=== PATIENT | female | born 1985 | race African-American/Black ===

== ENCOUNTER 2019-04-23 11:49 | Emergency (ER) | payer OTHER ==
--- OUTSIDE RECORDS SUMMARY | 2019-04-23 11:51 | XMS REPORT ---
:1985 [facility] Organization [facility] Address [address] [place] [address] Dr. Mendez [address] [place] [id number] Care Team Providers Name Role Phone Unavailable Unavailable Unavailable Problems This patient has no known problems. Allergies, Adverse Reactions, Alerts This patient has no known allergies or adverse reactions. Medications This patient has no known medications.
--- NOTE | 2019-04-23 12:30 | RAD REPORT ---
EXAM DESCRIPTION: RAD - Chest Pa And Lat (2 Views) - 04/23/2019 12:22 pm CLINICAL HISTORY: Cough;Congestion Chest pain. COMPARISON: CHEST PA AND LAT 2 VIEW dated 06/12/2012; CHEST PA AND LAT 2 VIEW dated 06/08/2012; CHEST PA AND LAT 2 VIEW dated 03/23/2012; CHEST SINGLE VIEW dated 11/13/2009 FINDINGS: The lungs are clear. The heart is normal in size. No displaced fractures. IMPRESSION: No acute or concerning finding suspected.
[2019-04-23] MEDS ORDERED: IPRATROPIUM BROM 0.5MG/2.5ML ONE (12:38)
[2019-04-23] MEDS ORDERED: METHYLPREDNISOLONE 125 MG INJ ONE (12:38)
[2019-04-23] MEDS ORDERED: LEVALBUTEROL 1.25 MG/3 ML NEB ONE (12:38)
[2019-04-23] MEDS ORDERED: CEFTRIAXONE/SWI 1gm 2 GM/20 ML SYR ONE (12:38)
[2019-04-23] MEDS ORDERED: AZITHROMYCIN IV 500 MG in NA CHLORIDE 0.9% 250 ML IVPB ONE (13:00)
[2019-04-23 13:18] LABS: Absolute Lymphocytes (CBC) 0.7 K/uL (0.7-4.9); Basophils % 0.4 % (0-1.3); Hematocrit 37.2 % (36.0-45.0); MPV 11.3 fL (7.6-11.3); RBC Red Blood Cell Count 4.48 M/uL (3.86-4.86)
[2019-04-23 13:30] LABS: ALT/SGPT 22 U/L (12-78); AST/SGOT 31 U/L (15-37); Albumin 3.9 g/dL (3.4-5.0); Alkaline Phosphatase 61 U/L (45-117); BUN Blood Urea Nitrogen 16 mg/dL (7-18); Bicarbonate 24 mmol/L (21-32); Bilirubin Total 0.7 mg/dL (0.2-1.0); Glucose Level 88 mg/dL (74-106); Potassium 3.7 mmol/L (3.5-5.1); Protein, Total 8.1 g/dL (6.4-8.2); Sodium Level 138 mmol/L (136-145)
[2019-04-23] MEDS ORDERED: ONDANSETRON 4 MG/2 ML VIAL ONE (13:42)
[2019-04-23] MEDS ORDERED: MORPHINE 2 MG/ML SYR ONE (13:42)
[2019-04-23 13:46] LABS: Blood Morphology Comment NOT SEEN (NOT SEEN); Platelet Estimate DECR; Platelets, Giant FEW; Urine White Blood Cell Casts OK
--- NOTE | 2019-04-23 14:15 | ER ---
Nurse's Notes [facility] Name: Noami Curtis Age: 33 yrs Sex: Female : 1985 Arrival Date: 04/23/2019 Time: 11:51 Bed 25 Private MD: Diagnosis: Streptococcal tonsillitis;Bronchitis, not specified as acute or chronic;Cough;Multiple sclerosis Presentation: 04/22 12:03 Chief complaint: Patient states: Fever, vomiting, cough, and congestion for the past aj1 week. TMax 103. Patient also reports a "lump" on the left side of her neck and painful swallowing. Coronavirus screen: The patient has NOT traveled to [place] in the past 14 days. Ebola Screen: Patient denies travel to an Ebola-affected area in the 21 days before illness onset. Initial Sepsis Screen: Does the patient meet any 2 criteria? RR > 20 per min. No. Patient's initial sepsis screen is negative. Does the patient have a suspected source of infection? Yes: Productive cough/pneumonia. Risk Assessment: Do you want to hurt yourself or someone else? Patient reports no desire to harm self or others. 12:03 Method Of Arrival: Ambulatory aj1 12:08 Acuity: BETY 3 aj1 Triage Assessment: 12:05 General: Appears in no apparent distress. uncomfortable, Behavior is calm, cooperative, aj1 appropriate for age. Pain: Complains of pain in neck. 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 - Social history:: Smoking status: Patient denies any tobacco usage or history of. - Family history:: not pertinent. Screenin:09 Abuse screen: Denies threats or abuse. Denies injuries from another. Nutritional aj1 screening: No deficits noted. Tuberculosis screening: No symptoms or risk factors identified. 14:42 Fall Risk None identified. aj1 Assessment: 12:09 General: Appears in no apparent distress. uncomfortable, Behavior is calm, cooperative, aj1 appropriate for age. Pain: Complains of pain in neck. Neuro: Level of Consciousness is awake, alert, obeys commands, Oriented to person, place, time, situation. Cardiovascular: Heart tones S1 S2 present Patient's skin is warm and dry. Respiratory: Reports cough that is hacking, persistent Airway is patent Respiratory effort is even, unlabored, Respiratory pattern is regular, symmetrical, Breath sounds are coarse bilaterally. GI: No signs and/or symptoms were reported involving the gastrointestinal system. : No signs and/or symptoms were reported regarding the genitourinary system. EENT: Reports difficulty swallowing sore throat, neck pain. Derm: No signs and/or symptoms reported regarding the dermatologic system. Skin is pink, warm \\T\\ dry. normal. Musculoskeletal: No signs and/or symptoms reported regarding the musculoskeletal system. Circulation, motion, and sensation intact. 12:12 Reassessment: Patient transported to radiology for chest X-Ray. aj1 13:24 Reassessment: Patient appears in no apparent distress at this time. No changes from aj1 previously documented assessment. Patient and/or family updated on plan of care and expected duration. Pain level reassessed. Patient is alert, oriented x 3, equal unlabored respirations, skin warm/dry/pink. 14:41 Reassessment: Patient appears in no apparent distress at this time. No changes from aj1 previously documented assessment. Patient and/or family updated on plan of care and expected duration. Pain level reassessed. Patient is alert, oriented x 3, equal unlabored respirations, skin warm/dry/pink. Vital Signs: 12:03 BP 139 / 98; Pulse 88; Resp 24; Temp 98.4(O); Pulse Ox 100% on R/A; Weight 47.63 kg aj1 (R); Height 5 ft. 9 in. (175.26 cm) (R); Pain 8/10; 13:25 BP 133 / 88; Pulse 70; Resp 20; Temp 98.6; Pulse Ox 100% on R/A; aj1 14:41 BP 130 / 87; Pulse 82; Resp 18; Pulse Ox 100% on R/A; aj1 12:03 Body Mass Index 15.51 (47.63 kg, 175.26 cm) aj ED Course: 11:51 Patient arrived in ED. as 11:56 Josh Agarwal MD is Attending Physician. nestor 11:57 Sebastián, Naomi, RN is Primary Nurse. aj1 12:05 Arm band placed on. aj1 12:08 Triage completed. aj1 12:09 Patient has correct armband on for positive identification. Bed in low position. Call aj1 light in reach. Side rails up X 1. 12:09 No provider procedures requiring assistance completed. aj1 12:23 Chest Pa And Lat (2 Views) XRAY In Process Unspecified. EDMS 12:40 First set of blood cultures drawn by ED staff. aj1 12:54 Second set of blood cultures drawn by ED staff. Initial lab(s) drawn, by ED staff, sent aj1 to lab. Inserted saline lock: 22 gauge in left wrist, using aseptic technique. 12:56 Flu and/or RSV swab sent to lab. aj1 14:42 IV discontinued, intact, bleeding controlled, No redness/swelling at site. Pressure aj1 dressing applied. Administered Medications: 13:13 Drug: SOLU-Medrol 2 mg/kg Route: IVP; Site: left wrist; aj1 13:45 Follow up: Response: No adverse reaction aj1 13:14 Drug: Rocephin 2 grams Route: IV; Rate: per protocol; Site: left wrist; aj1 13:20 Follow up: IV Status: Completed infusion; IV Intake: 20ml aj1 13:14 Drug: Zithromax 500 mg Route: IVPB; Infused Over: 1 hrs; Site: left wrist; aj1 14:15 Follow up: IV Status: Completed infusion; IV Intake: 250ml aj1 13:14 Drug: Xopenex 3.75 mg Route: Inhalation; aj1 13:45 Follow up: Response: No adverse reaction aj1 13:14 Drug: AtroVENT Aerosol 0.5 mg Route: Inhalation; aj1 13:45 Follow up: Response: No adverse reaction aj1 13:44 Drug: morphine 2 mg Route: IVP; Site: left wrist; aj1 14:15 Follow up: Response: No adverse reaction; Pain is decreased; RASS: Alert and Calm (0) aj1 13:44 Drug: Zofran (Ondansetron) 4 mg Route: IVP; Site: left wrist; aj1 14:15 Follow up: Response: No adverse reaction aj1 14:40 Drug: Augmentin 875 mg Route: PO; aj1 14:45 Follow up: Response: No adverse reaction aj1 Intake: 13:20 IV: 20ml; Total: 20ml. aj1 14:15 IV: 250ml; Total: 270ml. aj1 Outcome: 14:14 Discharge ordered by . nestor 14:42 Discharged to home ambulatory. aj1 14:42 Condition: good 14:42 Discharge instructions given to patient, Instructed on discharge instructions, follow up and referral plans. medication usage, Demonstrated understanding of instructions, follow-up care, medications, Prescriptions given X 1. 14:43 Patient left the ED. aj1 Signatures: Dispatcher [employer] Naomi Gonzalez RN RN aj1 Josh Agarwal MD MD cha Martinez, Amelia as
--- NOTE | 2019-04-23 14:15 | EDPHYS ---
Physician Documentation [facility] Name: Naomi Curtis Age: 33 yrs Sex: Female : 1985 Arrival Date: 04/23/2019 Time: 11:51 Bed 25 Private MD: ED Physician Josh Agarwal HPI: 04/22 12:24 This 33 yrs old Black Female presents to ER via Ambulatory with complaints of Flu nestor Symptoms. 12:24 The patient has shortness of breath at rest, with light activity. Onset: The nestor symptoms/episode began/occurred 4 day(s) ago. Duration: The symptoms are continuous, and are steadily getting worse. The patient's shortness of breath is aggravated by coughing, exertion, light activity, is alleviated by nebulizer treatment, rest, application of supplemental oxygen. The patient presents to the emergency department with wheezing, the patient was reported to have audible wheezing. The patient or guardian reports airway noise, difficulty breathing. Modifying factors: The symptoms are alleviated by nothing. the symptoms are aggravated by activity, lying flat, talking. 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 - Social history:: Smoking status: Patient denies any tobacco usage or history of. - Family history:: not pertinent. ROS: 12:24 Constitutional: Negative for fever, chills, and weight loss, Eyes: Negative for injury, nestor pain, redness, and discharge, ENT: Negative for injury, pain, and discharge, Neck: Negative for injury, pain, and swelling, Cardiovascular: Negative for chest pain, palpitations, and edema, Abdomen/GI: Negative for abdominal pain, nausea, vomiting, diarrhea, and constipation, Back: Negative for injury and pain, : Negative for injury, bleeding, discharge, and swelling, MS/Extremity: Negative for injury and deformity, Skin: Negative for injury, rash, and discoloration, Neuro: Negative for headache, weakness, numbness, tingling, and seizure, Psych: Negative for depression, anxiety, suicide ideation, homicidal ideation, and hallucinations, Allergy/Immunology: Negative for hives, rash, and allergies, Endocrine: Negative for neck swelling, polydipsia, polyuria, polyphagia, and marked weight changes, Hematologic/Lymphatic: Negative for swollen nodes, abnormal bleeding, and unusual bruising. 12:24 Respiratory: Positive for cough, wheezing, inspiratory, expiratory. Exam: 12:24 Constitutional: This is a well developed, well nourished patient who is awake, alert, nestor and in no acute distress. Head/Face: Normocephalic, atraumatic. Eyes: Pupils equal round and reactive to light, extra-ocular motions intact. Lids and lashes normal. Conjunctiva and sclera are non-icteric and not injected. Cornea within normal limits. Periorbital areas with no swelling, redness, or edema. ENT: Nares patent. No nasal discharge, no septal abnormalities noted. Tympanic membranes are normal and external auditory canals are clear. Oropharynx with no redness, swelling, or masses, exudates, or evidence of obstruction, uvula midline. Mucous membranes moist. Neck: Trachea midline, no thyromegaly or masses palpated, and no cervical lymphadenopathy. Supple, full range of motion without nuchal rigidity, or vertebral point tenderness. No Meningismus. Chest/axilla: Normal chest wall appearance and motion. Nontender with no deformity. No lesions are appreciated. Cardiovascular: Regular rate and rhythm with a normal S1 and S2. No gallops, murmurs, or rubs. Normal PMI, no JVD. No pulse deficits. Abdomen/GI: Soft, non-tender, with normal bowel sounds. No distension or tympany. No guarding or rebound. No evidence of tenderness throughout. Back: No spinal tenderness. No costovertebral tenderness. Full range of motion. Female : Normal external genitalia. Skin: Warm, dry with normal turgor. Normal color with no rashes, no lesions, and no evidence of cellulitis. MS/ Extremity: Pulses equal, no cyanosis. Neurovascular intact. Full, normal range of motion. Neuro: Awake and alert, GCS 15, oriented to person, place, time, and situation. Cranial nerves II-XII grossly intact. Motor strength 5/5 in all extremities. Sensory grossly intact. Cerebellar exam normal. Normal gait. Psych: Awake, alert, with orientation to person, place and time. Behavior, mood, and affect are within normal limits. 12:24 Respiratory: mild respiratory distress is noted, Respirations: prolonged exhalation, Breath sounds: bronchial sounds, decreased breath sounds, rhonchi, wheezing: expiratory Respiratory rate: 24 13:19 Musculoskeletal/extremity: Exam is negative for acute changes, Extremities: all appear nestor grossly normal, with no appreciated pain with palpation, DVT Exam: No signs of deep vein thrombosis. no pain, no swelling, no tenderness, negative Homans' sign noted on exam, no appreciated bluish discoloration, no erythema, no increased warmth. Vital Signs: 12:03 BP 139 / 98; Pulse 88; Resp 24; Temp 98.4(O); Pulse Ox 100% on R/A; Weight 47.63 kg [facility] (R); Height 5 ft. 9 in. (175.26 cm) (R); Pain 8/10; 13:25 BP 133 / 88; Pulse 70; Resp 20; Temp 98.6; Pulse Ox 100% on R/A; aj1 14:41 BP 130 / 87; Pulse 82; Resp 18; Pulse Ox 100% on R/A; aj1 12:03 Body Mass Index 15.51 (47.63 kg, 175.26 cm) [facility] MDM: 11:56 Patient medically screened. [facility] 11:58 Patient medically screened. [facility] 12:29 Data reviewed: vital signs, nurses notes, lab test result(s), EKG, radiologic studies, nestor CT scan, plain films. 04/22 12:06 Order name: CBC with Diff; Complete Time: 14:05 [facility] 04/22 12:06 Order name: Comprehensive Metabolic Panel; Complete Time: 14:05 [facility] 04/22 12:06 Order name: Blood Culture Adult (2) [facility] 04/22 12:06 Order name: Lactate; Complete Time: 14:05 [facility] 04/22 12:06 Order name: Procalcitonin; Complete Time: 14:05 [facility] 04/22 12:06 Order name: Influenza Screen (a \T\ B); Complete Time: 14:05 [facility] 04/22 12:06 Order name: Chest Pa And Lat (2 Views) XRAY; Complete Time: 12:57 [facility] 04/22 12:44 Order name: Strep; Complete Time: 14:05 [facility] 04/22 13:47 Order name: CBC Smear Scan; Complete Time: 14:05 EDMS Administered Medications: 13:13 Drug: SOLU-Medrol 2 mg/kg Route: IVP; Site: left wrist; aj1 13:45 Follow up: Response: No adverse reaction aj1 13:14 Drug: Rocephin 2 grams Route: IV; Rate: per protocol; Site: left wrist; aj1 13:20 Follow up: IV Status: Completed infusion; IV Intake: 20ml aj1 13:14 Drug: Zithromax 500 mg Route: IVPB; Infused Over: 1 hrs; Site: left wrist; aj1 14:15 Follow up: IV Status: Completed infusion; IV Intake: 250ml aj1 13:14 Drug: Xopenex 3.75 mg Route: Inhalation; aj1 13:45 Follow up: Response: No adverse reaction aj1 13:14 Drug: AtroVENT Aerosol 0.5 mg Route: Inhalation; aj1 13:45 Follow up: Response: No adverse reaction aj1 13:44 Drug: morphine 2 mg Route: IVP; Site: left wrist; aj1 14:15 Follow up: Response: No adverse reaction; Pain is decreased; RASS: Alert and Calm (0) aj1 13:44 Drug: Zofran (Ondansetron) 4 mg Route: IVP; Site: left wrist; aj1 14:15 Follow up: Response: No adverse reaction aj1 14:40 Drug: Augmentin 875 mg Route: PO; aj1 14:45 Follow up: Response: No adverse reaction aj Disposition: 04/23/19 14:14 Discharged to Home. Impression: Streptococcal tonsillitis, Bronchitis, not specified as acute or chronic, Cough, Multiple sclerosis. - Condition is Stable. - Discharge Instructions: Acute Bronchitis, Adult, Upper Respiratory Infection, Adult, Cool Mist Vaporizer, Acute Bronchitis, Akew-on-Rbel, Cough, Adult, [id number], Cough, Adult. - Prescriptions for Augmentin 875- 125 mg Oral Tablet - take 1 tablet by ORAL route every 12 hours for 10 days; 20 tablet. Medrol (Jim) 4 mg Oral Tablets, Dose Pack - take 1 tablet by ORAL route as directed - follow package instructions; 1 packet. Albuterol Sulfate 90 mcg/actuation - inhale 1-2 puff by INHALATION route every 4-6 hours; 1 Inhaler. - Work release form, Medication Reconciliation Form, Thank You Letter, Antibiotic Education, Prescription Opioid Use form. - Follow up: Private Physician; When: 2 - 3 days; Reason: Recheck today's complaints, Continuance of care, Re-evaluation by your physician. - Problem is new. - Symptoms have improved. Signatures: Dispatcher [employer] Naomi Gonzalez RN RN aj1 Josh Agarwal MD MD cha Corrections: (The following items were deleted from the chart) 14:43 14:14 04/23/2019 14:14 Discharged to Home. Impression: Streptococcal tonsillitis; aj1 Bronchitis, not specified as acute or chronic; Cough; Multiple sclerosis. Condition is Stable. Forms are Medication Reconciliation Form, Thank You Letter, Antibiotic Education, Prescription Opioid Use. Follow up: Private Physician; When: 2 - 3 days; Reason: Recheck today's complaints, Continuance of care, Re-evaluation by your physician. Problem is new. Symptoms have improved. nestor
[2019-04-23] MEDS ORDERED: AMOX/K CLAV 875 MG TAB ONE (14:34)
[2019-04-23 14:54] VITALS: TEMP 98.6; O2SAT 100
[2019-04-23 14:56] VITALS: BP 130/87
== END 2019-04-23 14:43 | disposition home or self-care (01) ==
LOC: ER 11:49
DX: J40 Bronchitis, not specified as acute or chronic (principal); J03.00 Acute streptococcal tonsillitis, unspecified; G35 Multiple sclerosis
CPT/HCPCS: 96365; 87040 ×2; 85025; 36415; 87081; 83605; 80053; 84145; 87804 ×2; 71046; 96375; 99285; J0456; J2270; J0696; J7030; J2930; J2405

== ENCOUNTER 2024-01-31 12:14 | Emergency (ER) | payer MEDICARE ==
--- OUTSIDE RECORDS SUMMARY | 2024-01-31 12:23 | XMS REPORT | Continuity of Care Document ---
Author Name Unknown Address [address] [facility] [address] [place] [address] [facility] thcredwood llcect Address [address] 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 Name Role Phone PCP, PATIENT DOES NOT HAVE A Primary Care Physic kunal Unavailable [email or web address]_Petra_S Attending Clinician Unavaila LARISA Stern Attending Clinician Un available Larisa Nichols MD Attending Clinician Vjiay Yanez MD Attending Clinician [phone] Vijay Sunshine CRNA Attending Clinician [phone] Radha Miles Attending Clinician [phone] Oscar --Alma Attending Clinician Gabrielle Jordan Attending Clinician Unavaila MIKHAIL Aguilar Attending Clinician Unavailable [email or web address]_Kadiyala_S Admitting Clinician UnavailLARISA Knutson Admitting Clinician Un available Gabrielle Jordan Admitting Clinician Un available LISA MCDONALD Admitting Clinician Unavailable Payers Payer Name Policy Type Policy Number Effective Date Expirati on Date Source [facility] MGD [facility] [id number] 2021 00:00:00 [facility] (MEDICARE REPLACEMENT HMO) [id number] 2021 00:00:00 MEDICARE PART A \\T\\ B [id number] 2014 00:00:00 2019 00:00:00 Allergies, Adverse Reactions, Alerts Allergy Name Allergy Type Status Severity Reaction(s) Onset Date Inactive Date Treating Clinician Comments Source wheat FA Active U VOMITING 10-28 00:00: 00 [facility] coconut FA Active U VOMITING 10-28 00:00: 00 [facility] COCONUT Drug Class Active N/V 11-02 00:00: 00 [facility] WHEAT DRUG INGREDI Active N/V 11-02 00:00: 00 [facility] NO KNOWN ALLERGIE S Allergy Active [facility] Social History Social Habit Start Date Stop Date Quantity Comments Source Alcohol intake 2022-10-06 00:00:00 2022-10-06 00:00:00 Lifetime non-drinker (finding) [facility] Exposure to SARS-CoV-2 (event) 2022-09-25 00:00:00 2022-10-05 10:22:00 Not sure [facility] Tobacco use and exposure 2022-10-01 00:00:00 2022-10-01 00:00:00 Smokeless tobacco non-user [facility] Sex Assigned At 1985 00:00:00 1985 00:00:00 [facility] Smoking Status Start Date Stop Date Source Never smoked tobacco [facility] Vital Signs Vital Name Observation Time Observation Value Comments S ource HEIGHT 2022-10-05 10:30:00 175.3 cm WEIGHT 2022-10-05 10:30:00 50.349 kg HEIGHT 2022-10-01 11:02:00 175.3 cm WEIGHT 2022-10-01 11:02:00 50.349 kg HEIGHT 2022-10-05 10:30:00 175.3 cm WEIGHT 2022-10-05 10:30:00 50.349 kg HEIGHT 2022-10-01 11:02:00 175.3 cm WEIGHT 2022-10-01 11:02:00 50.349 kg Systolic blood pressure 2022-10-05 12:20:00 141 mm[Hg] [facility] Diastolic blood pressure 2022-10-05 12:20:00 90 mm[Hg] [facility] Heart rate 2022-10-05 12:20:00 68 /min [facility] Respiratory rate 2022-10-05 12:20:00 20 /min [facility] Oxygen saturation in Arterial blood by Pulse oximetry 2022-10-05 12:20:00 100 /min [facility] Body temperature 2022-10-05 11:35:00 36.56 Kathrin [facility] Body height 2022-10-05 10:30:00 175.3 cm [facility] Body weight 2022-10-05 10:30:00 50.349 kg [facility] BMI 2022-10-05 10:30:00 16.39 kg/m2 [facility] Procedures Procedure Date / Time Performed Performing Clinicia n Source REPORT OF PROCEDURE - ENDOSCOPY URL 2022-10-05 11:34:42 [facility] REPORT OF PROCEDURE - ENDOSCOPY URL 2022-10-05 11:09:16 Larisa Nichols [facility] TISSUE EXAM 2022-10-05 11:00:00 Megan Nicholsgiulia [facility] COLONOSCOPY, WITH BIOPSY 2022-10-05 10:53:00 [facility] ENDOSCOPY, UPPER GI TRACT, WITH BIOPSY 2022-10-05 10:53:00 [facility] Plan of Care Planned Activity Planned Date Details Comments Source Future Scheduled Test 2023-10-06 00:00:00 Tobacco Cessation Counseling and Screening (12+) [code = Tobacco Cessation Counseling and Screening (12+)] [facility] Future Scheduled Test 2023-10-06 00:00:00 Tobacco Cessation Counseling and Screening (12+) [code = Tobacco Cessation Counseling and Screening (12+)] [facility] Future Scheduled Test 2023-10-06 00:00:00 Tobacco Cessation Counseling and Screening (12+) [code = Tobacco Cessation Counseling and Screening (12+)] [facility] Future Scheduled Test 2023-10-06 00:00:00 Tobacco Cessation Counseling and Screening (12+) [code = Tobacco Cessation Counseling and Screening (12+)] [facility] Scheduled Test 2022-10-23 00:00:00 Influenza Vaccine (#1) [code = Influenza Vaccine (#1)] [facility] Scheduled Test 2022-10-23 00:00:00 Influenza Vaccine (#1) [code = Influenza Vaccine (#1)] [facility] Future Scheduled Test 2022-10-23 00:00:00 Influenza Vaccine (#1) [code = Influenza Vaccine (#1)] [facility] Future Scheduled Test 2022-10-23 00:00:00 Influenza Vaccine (#1) [code = Influenza Vaccine (#1)] [facility] Scheduled Test 2022-06-23 00:00:00 MEDICARE ANNUAL WELLNESS (YEAR 2 or FIRST YEAR if no IPPE) [code = MEDICARE ANNUAL WELLNESS (YEAR 2 or FIRST YEAR if no IPPE)] [facility] Future Scheduled Test 2022-06-23 00:00:00 MEDICARE ANNUAL WELLNESS (YEAR 2 or FIRST YEAR if no IPPE) [code = MEDICARE ANNUAL WELLNESS (YEAR 2 or FIRST YEAR if no IPPE)] [facility] Future Scheduled Test 2022-06-23 00:00:00 MEDICARE ANNUAL WELLNESS (YEAR 2 or FIRST YEAR if no IPPE) [code = MEDICARE ANNUAL WELLNESS (YEAR 2 or FIRST YEAR if no IPPE)] [facility] Future Scheduled Test 2022-06-23 00:00:00 MEDICARE ANNUAL WELLNESS (YEAR 2 or FIRST YEAR if no IPPE) [code = MEDICARE ANNUAL WELLNESS (YEAR 2 or FIRST YEAR if no IPPE)] [facility] Future Scheduled Test 2022-02-22 00:00:00 DEPRESSION SCREENING (12+) [code = DEPRESSION SCREENING (12+)] [facility] Future Scheduled Test 2022-02-22 00:00:00 DEPRESSION SCREENING (12+) [code = DEPRESSION SCREENING (12+)] [facility] Future Scheduled Test 2022-02-22 00:00:00 DEPRESSION SCREENING (12+) [code = DEPRESSION SCREENING (12+)] [facility] Future Scheduled Test 2022-02-22 00:00:00 DEPRESSION SCREENING (12+) [code = DEPRESSION SCREENING (12+)] [facility] Future Scheduled Test 2006 00:00:00 Screening for malignant neoplasm of cervix (procedure) [code = 859479054] [facility] Future Scheduled Test 2006 00:00:00 Screening for malignant neoplasm of cervix (procedure) [code = 773620976] [facility] Future Scheduled Test 2006 00:00:00 Screening for malignant neoplasm of cervix (procedure) [code = 776924019] [facility] Future Scheduled Test 2006 00:00:00 Screening for malignant neoplasm of cervix (procedure) [code = 005046967] [facility] Future Scheduled Test 2004 00:00:00 DTAP/TDAP/TD VACCINES (1 - Tdap) [code = DTAP/TDAP/TD VACCINES (1 - Tdap)] [facility] Future Scheduled Test 2004 00:00:00 DTAP/TDAP/TD VACCINES (1 - Tdap) [code = DTAP/TDAP/TD VACCINES (1 - Tdap)] [facility] Future Scheduled Test 2004 00:00:00 DTAP/TDAP/TD VACCINES (1 - Tdap) [code = DTAP/TDAP/TD VACCINES (1 - Tdap)] [facility] Future Scheduled Test 2004 00:00:00 DTAP/TDAP/TD VACCINES (1 - Tdap) [code = DTAP/TDAP/TD VACCINES (1 - Tdap)] [facility] Future Scheduled Test 2003-11-07 00:00:00 HEPATITIS C SCREENING [code = HEPATITIS C SCREENING] [facility] Future Scheduled Test 2003-11-07 00:00:00 HEPATITIS C SCREENING [code = HEPATITIS C SCREENING] [facility] Future Scheduled Test 2003-11-07 00:00:00 HEPATITIS C SCREENING [code = HEPATITIS C SCREENING] [facility] Future Scheduled Test 2003-11-07 00:00:00 HEPATITIS C SCREENING [code = HEPATITIS C SCREENING] [facility] Future Scheduled Test 2000 00:00:00 Human immunodeficiency virus screening (procedure) [code = 540549242] [facility] Future Scheduled Test 2000 00:00:00 Human immunodeficiency virus screening (procedure) [code = 400499324] [facility] Future Scheduled Test 2000 00:00:00 Human immunodeficiency virus screening (procedure) [code = 451086136] [facility] Future Scheduled Test 2000 00:00:00 Human immunodeficiency virus screening (procedure) [code = 331857366] [facility] Future Scheduled Test 1986-05-06 00:00:00 COVID-19 VACCINE (#1) [code = COVID-19 VACCINE (#1)] [facility] Future Scheduled Test 1986-05-06 00:00:00 COVID-19 VACCINE (#1) [code = COVID-19 VACCINE (#1)] [facility] Future Scheduled Test 1986-05-06 00:00:00 COVID-19 VACCINE (#1) [code = COVID-19 VACCINE (#1)] [facility] Future Scheduled Test 1986-05-06 00:00:00 COVID-19 VACCINE (#1) [code = COVID-19 VACCINE (#1)] [facility] Encounters Start Date/Time End Date/Time Encounter Type Admission Type Attending Clinicians Care Facility Care Department Encounter ID Source 2022-12-22 00:00:00 2022-12-22 00:00:00 Outpatient GC_GCBZW_Ka diyala_S [facility] [id number] [facility] 2022-12-21 00:00:00 2022-12-21 00:00:00 Outpatient GC_GCBZW_Ka diyala_S [facility] [id number] [facility] 2022-10-05 10:17:00 2022-10-05 12:40:00 Outpatient LARISA WATTERS SLS Surgery [id number] [facility] 2022-10-05 10:17:00 2022-10-05 12:40:00 Hospital Encounter Larisa Watters [facility] [id number] [facility] 2022-10-05 11:30:00 2022-10-05 12:30:00 [id number] [facility] 2022-10-05 10:53:00 2022-10-05 11:33:00 Anesthesia Event Vijay Yanez Jose Luis [facility] [id number] [facility] 2022-10-05 00:00:00 2022-10-05 00:00:00 Travel [facility] [id number] [facility] 2022-10-01 00:00:00 2022-10-01 00:00:00 Travel [facility] [id number] [facility] 2022-04-08 14:30:00 2022-04-08 15:30:00 DANE Miles [id number] [facility] 2022-04-08 00:00:00 2022-04-08 00:00:00 Outpatient DMG DMG [id number] [facility] 2022-04-08 00:00:00 2022-04-08 00:00:00 Outpatient DMG DMG [id number] [facility] 2022-04-08 00:00:00 2022-04-08 00:00:00 Outpatient DMG DMG [id number] [facility] 2021-12-09 16:00:00 2021-12-09 17:00:00 DANE Moore [id number] [id number] [facility] 2021-11-25 00:00:00 2021-11-25 00:00:00 Outpatient DMG DM [id number] [facility] 2021-10-30 12:56:00 2021-10-30 12:56:00 Outpatient Gabrielle Evans [facility] [id number] [id number] 2021-09-05 07:00:00 2021-09-05 07:00:00 Outpatient DMG DM [facility] 2021-07-22 12:00:00 2021-07-22 12:00:00 Outpatient DMG DM [facility] 2021-06-20 12:01:00 2021-06-20 12:01:00 Outpatient DMG DM [facility] 2019-01-31 15:35:34 2019-01-31 21:06:00 Emergency X MIKHAIL B[facility]MAN [facility] ERT [id number] [facility] Results Test Description Test Time Test Comments Results Result Co mments Source [facility] [id number] 15:16:42Surgical Pathology Report Case: [id number] Authorizing Provider: Larisa Nichols, Collected: 10/05/2022 11:00 AM Ordering Location: [facility] Received: 10/05/2022 11:52 AM Pathologist: Tyra Dunn MD Specimens: A) - Duodenum, random B) - Biopsy, Gastric, random C) - Polyp, Colon - Rectosigmoid his addendum is issued to report the result of immunohistochemic al study for Helicobacter pylori on B1:- NEGATIVE The interpretation of this case included the use of immunohistochemistry or special stains. HELICOBACTER PYLORIImmunohistochemistry technical testingwas performed at [facility]ology Laboratory where it was developed and its performance characteristics were determined. It has not been cleared or approved by the U.S. Food and Drug Administration. The FDA has determined that such clearance or approval is not necessary. The test is used for clinical purposes. It should not be regarded as investigational or for research. This laboratory is certified under the Clinical Laboratory Improvement Amendments of 1988 (CLIA-88) as qualified to perform high complexity clinical laboratory testing. ADDITIONAL CPT CODE: 89452 Addendum electronically signed by Tyra Dunn MD on 10/09/2022 at 3:16 PMA. DUODENUM, RANDOM, ENDOSCOPIC BIOPSY:- NO PATHOLOGIC ALTERATION- NO PEPTIC DUODENITIS- NO FEATURES OF CELIAC DISEASE SEEN- NO GRANULOMAS, DYSPLASIA OR MALIGNANCY SEENB. STOMACH, RANDOM, ENDOSCOPIC BIOPSY: - MILD CHRONIC GASTRITIS AND REACTIVE GASTROPATHY - NO HELICOBACTER PYLORI-LIKE ORGANISMS SEEN ON H&E STAIN - NO INTESTINAL METAPLASIA, DYSPLASIA OR MALIGNANCY NOTED - IMMUNOHISTOCHEMICAL STAIN FOR HELICOBACTER IS BEING DONE; RESULT WILL BE ISSUED IN ADDENDUM REPORTCCOLON, RECTOSIGMOID, ENDOSCOPIC POLYPECTOMY: - POLYPOID COLONIC MUCOSA WITH MILD HYPERPLASTIC CHANGES - NO DYSPLASIA OR INVASIVE CARCINOMA SEEN Signing Pathologist Direct Phone Line: [phone] signed by Tyra Dunn MD on 10/07/2022 at 5:05 [id number] X 3Epigastric pain, weight lossA. DuodenumReceived in formalin labeled with the patient's name, medical record number and labeled "duodenum, description: random" are 5 fragments of cantu-white mucosal tissue ,each measuring 0.3 cm in maximum dimension, submitted entirely in cassette labeled A1B. Biopsy, GastricReceived in formalin labeled with the patient's name, medical record number and labeled "biopsy, gastric, description: random are multiple fragments of cantu-white mucosal tissue measuring 0.7 x 0.6 x 0.1 cm in aggregate, submitted entirely in cassette labeled B1C. Polyp, Colon - RectosigmoidReceived in formalin labeled with the patient's name, medicalrecord number and labeled "polyp, colon-rectosigmoid" is a single cantu-white mucosal piece 0.4 cm inmaximum dimension, submitted entirely in cassette labeled [id number] 13:48:00* Test Item Value Reference Range Interpretation Commgiulia sheppard SURGICAL (test code = SR) RUN DATE: 11/03/21 [facility] PAGE 1 RUN TIME: 1348 Specimen Inquiry RUN USER: INTERFACE PATIENT: SHAYY YOU LOC: MARILYNU U #: [id number] AGE/SX: 35/F ROOM: RE10/30/21REG DR: Gabrielle Jordan : 85 BED: DIS: [place] [facility] [place]: SPEC #: [id number] RECD: 10/31/21 STATUS: AG MARTE #: [id number] OMARI: 10/30/21-1639 [facility] DR: Gabrielle Jordan MD ENTERED: 10/31/21 SP TYPE: SURGICAL OTHR DR: Nahid Parra Jr, MD ORDERED: [id number], [id number], ANATOMIC SPEC, SPECIMEN TRACK COPIES TO: Nahid Parra Jr, MD [address] [facility] [address] [place] [address] Gabrielle Jordan MD [address] [facility] [address] [place] [address] [place] [address] PROCEDURES: [id number] (11/03/21-1346) [id number] (11/03/21-1346) SPECIMEN TRACK (10/31/21) TISSUES: A. UTERUS - RIGHT LATERAL WALL B. UTERUS - UTERUS W/ CERVIX BILATERAL TUBES FINAL DIAGNOSIS A. RIGHT LATERAL WALL, BIOPSY:- Soft tissue with benign epithelial inclusion cyst. B. UTERUS, CERVIX, BILATERAL FALLOPIAN TUBES, TOTAL HYSTERECTOMY AND BILATERAL SALPINGECTOMY:- Cervix without dysplasia.- Secretory endometrium.- Focal superficial adenomyosis.- Unremarkable serosa and Fallopian tubes.- Paratubal cysts.- Specimen 102 g. GROSS DESCRIPTION A. Right lateral wall it consists of a single cantu soria tissue fragment measuring 0.6 x 0.4x 0.3 cm, submitted as A1. B. Uterus with bilateral fallopian tubes. Received is a uterus with detached leftfallopian tube. The uterus with attached right fallopian tube weighs 102 g. It measurescornu to cornu 6 cm, posterior to anterior 4 cm, and fundus to cervix 9.5 cm. The cervix CONTINUED ON NEXT PAGE RUN DATE: 11/03/21 [facility] PAGE 2 RUN TIME: 1348 Specimen Inquiry RUN USER: INTERFACE SPEC #: [id number] [facility]:[id number] PATIENT: SHAYY YOU #[id number] (Continued) --- GROSS DESCRIPTION (Continued) measures 3.8 x 2.7 cm and has a transverse cervical os of 1.3 cm. It is bivalved revealinga red- pink smooth cervical canal of a 3 cm in length and the endometrial cavity measures4.2 x 2.5 cm and covered by thick hemorrhagic endometrium of 0.3 cm. The uterine wall hasa maximum thickness of 2.5 cm. Sectioning through the uterine wall reveals no lesions. The serosal surface is smooth. The attached right fallopian tube with fimbriated end measures 4 cm in length and has adiameter of 0.6 cm. The detached left fallopian tube with fimbriated end measures 3.5 cmin length and has a diameter of 0.6 cm. B1 posterior cervixB2 anterior cervixB3 posterior endomyometriumB4 additional posterior endometriumB5 anterior endomyometrium B6 additional anterior endomyometriumB7 posterior reflectionB8 right fallopian tube cut surface with entire bisected fimbriated endB9 left fallopian tube cut surface with entire bisected fimbriated end Technical tissue processing and slide preparation performed at [facility] [address] , [place] [address] MICROSCOPIC DESCRIPTION A and B. Microscopic examination is performed and the findings are incorporated into thefinal diagnosis. Please see diagnosis for findings. - Signed SIGNATURE ON FILE Jose Albert 11/03/21 0873 END OF REPORT UR HCG [id number] 10:28:00* Test Item Value Reference Range Interpretation Comme nts UR HCG QUAL (test code = HCGQLU) NEGATIVE NEGATIVE COVID 19 INHOUSE [id number] 10:01:00* Test Item Value Reference Range Interpretation Comme nts COVID 19 INHOUSE AG (test code = [id number]) NEGATIVE Negative Per senior qualitative researcher , negative results should be treated aspresumptive and, if inconsistent with clinical signs andsymptoms or necessary for patient management, should betested with an alternative molecular assay. Negative resultsdo not preclude SARS-CoV-2 infection and should not be usedas the sole basis for patient management decisions. Negative results should be considered in the context of apatient's recent exposures, history, presence of clinicalsigns and symptoms consistent with COVID-19. URINALYSIS [id number] 09:39:00* Test Item Value Reference Range Interpretation Comme nts UA GLUCOSE DIPSTICK (test code = DGLUU) NEGATIVE mg/dL NEG UA BILIRUBIN DIPSTICK (test code = BILU) NEGATIVE mg/dL NEG UA KETONE DIPSTICK (test code = KETU) NEGATIVE mg/dL NEG UA SPECIFIC GRAVITY (test code = SGU) <=1.005 SG 1.005-1.030 UA BLOOD DIPSTICK (test code = FAVIOLA) NEGATIVE mg/DL NEG UA PH DIPSTICK (test code = HAILEY) 6.0 pH UNITS 5.0-7.0 UA PROTEIN DIPSTICK (test code = PROU) NEGATIVE mg/dL NEG UA UROBILINIOGEN DIPSTICK (test code = URO) 0.2 mg/dL <2.0 UA NITRITE DIPSTICK (test code = STELLA) NEGATIVE SCREEN NEG UA LEUKOCYTE ESTERASE DIPSTICK (test code = LEUU) NEGATIVE Leuk/mcL NEGATIVE Urine Specimen Type: Clean CatchCBC W/AUTO [id number] 09:38:00* Test Item Value Reference Range Interpretation Comme nts WHITE BLOOD CELL (test code = WBC) 4.1 K/mm3 3.5-11.0 N RED BLOOD CELL (test code = RBC) 4.55 M/mm3 4.70-6.10 L HEMOGLOBIN (test code = HGB) 12.1 G/DL 10.4-14.9 N HEMATOCRIT (test code = HCT) 37.9 % 31.5-44.1 N MEAN CELL VOLUME (test code = MCV) 83.3 Fl 84.5-98.6 L MEAN CELL HGB (test code = MCH) 26.6 pg 27.0-34.2 L MEAN CELL HGB CONCETRATION (test code = MCHC) 31.9 G/DL 31.5-34.0 N RED CELL DISTRIBUTION WIDTH (test code = RDW) 15.1 SD 11.5-14.5 H PLATELET COUNT (test code = PLT) 134 K/mm3 150-450 L MEAN PLATELET VOLUME (test c ode = MPV) 11.10 fL 7.0-10.5 H NEUTROPHIL % (test code = NT%) 64.8 % 40-76 N IMMATURE GRANULOCYTE % (test code = IG%) 0.2 % 0.0-5.0 N LYMPHOCYTE % (test code = LY%) 18.6 % 20.5-51.1 L MONOCYTE % (test code = MO%) 8.8 % 1.7-9.3 N EOSINOPHIL % (test code = EO%) 7.1 % 0.0-6.0 H BASOPHIL % (test code = BA%) 0.5 % 0.0-2.0 N NUCLEATED RBC % (test code = NRBC%) 0.0 /100WBC% 0.0-1.0 N NEUTROPHIL # (test code = NT#) 2.7 K/mm3 1.8-7.6 N IMMATURE GRANULOCYTE # (test code = IG#) 0.01 x10 3/uL 0.00-0.03 N LYMPHOCYTE # (test code = LY#) 0.8 K/mm3 0.6-3.2 N MONOCYTE # (test code = MO#) 0.4 K/mm3 0.3-1.1 N EOSINOPHIL # (test code = EO#) 0.3 K/mm3 0.0-0.4 N BASOPHIL # (test code = BA#) 0.0 K/mm3 0.0-0.1 N NUCLEATED RBC # (test code = NRBC#) 0.0 K/mm3 0.0-0.1 N MANUAL DIFF REQUIRED (test c ode = MDIFF) NO DIFF/SCN CRITERIA
[2024-01-31 14:06] LABS: Absolute Eosinophils 0.2 K/uL (0-0.5); Absolute Monocytes 0.3 K/uL (0.1-1.3); Absolute Neutrophil 2.9 K/uL (1.8-8.0); Basophils % 0.9 % (0-1.3); Eosinophils % 4.9 % (0-4.4); Hematocrit 44.3 % (36.0-45.0); Hemoglobin 14.4 g/dL (12.0-15.0); Lymphocytes % 23.1 % (15.3-44.8); MCH 28.6 pg (27.0-35.0); MCHC 32.4 g/dL (32.0-36.0); MCV 88.3 fL (80-100); MPV 9.6 fL (7.6-11.3); Neutrophils % 65.1 % (41.7-73.7); Platelets 133 thou/uL (152-406); RBC Red Blood Cell Count 5.01 M/uL (3.86-4.86); Red Cell Distribution Width 13.3 % (12.1-15.2)
[2024-01-31 14:16] LABS: Specific Gravity 1.017 (1.005-1.030); Sqamous Epithelial <5 /HPF (None Seen); Urine Bacteria None Seen /HPF (<20); Urine Bilirubin NEGATIVE (Negative); Urine Blood Negative (Negative); Urine Clarity Turbid (Clear); Urine Color Light-Yellow (Yellow); Urine Culture Reflex Order NOT NEEDED; Urine Glucose NEGATIVE (Negative); Urine Ketones NEGATIVE (Negative); Urine Microscopic Reflex YN ORDER UMIC; Urine Nitrite NEGATIVE (Negative); Urine Protein NEGATIVE (Negative); Urine RBC <5 /HPF (None Seen); Urine Urobilinogen Normal (Normal); Urine WBC <5 /HPF (<5); Urine pH 7.5 (5.0-7.0)
[2024-01-31 14:24] LABS: Albumin 4.2 g/dL (3.4-5.0); Albumin/Globulin Ratio 1.1 (1.1-1.8); Anion Gap 5.8 mEq/L (5.0-15.0); Bilirubin Total 0.5 mg/dL (0.2-1.0); Potassium 3.8 mEq/L (3.5-5.1); Protein, Total 8.2 g/dL (6.4-8.2)
--- NOTE | 2024-01-31 14:34 | RAD REPORT ---
EXAMINATION: CT Abdomen Pelvis Wo Contrast CLINICAL INDICATION: Female, 38 years old. ABD PAIN TECHNIQUE: CT abdomen and pelvis was performed, without IV contrast, as per department protocol. Axia l, sagittal and coronal reconstructions were obtained. One or more of the following dose reduction techniques were used: Automated exposure control, adjustment of the mA and kV according to the patien t size, and iterative reconstruction. Unless otherwise specified, incidental findings do not require dedicated imaging follow-up. COMPARISON: No prior exam. FINDINGS: The lack of intravenous contrast limits the sensitivity of this exam for evaluation of solid visceral organs, vascular structures, and retroperitoneum. LOWER CHEST: The visualized lung bases are clear. LIVER: Normal in size and contour. No focal lesion. BILIARY SYSTEM: Gallbladder is not well visualized, likely surgically removed. Subtle focus of hyperd ensity near the hepatic hilum, may relate to a surgical suture.. SPLEEN: Normal size. No focal lesion. PANCREAS: No mass, ductal dilation, or dejon-pancreatic fluid. ADRENALS: Normal; no mass. KIDNEYS AND URETERS: Normal size and contour. No hydronephrosis. URINARY BLADDER: Suboptimally distended limiting evaluation. GASTROINTESTINAL TRACT: No evidence of bowel obstruction, free air or abscess. Small-volume pelvic f ree fluid. APPENDIX: Normal appendix. LYMPH NODES: No lymphadenopathy. MUSCULOSKELETAL: No acute or suspicious osseous abnormality. ADDITIONAL FINDINGS: Mild fat stranding in the left suprapubic region anteriorly. IMPRESSION: Nonspecific mild fat stranding in the left suprapubic region anteriorly, could relate to sequelae of enteritis, less likely focal cystitis. Mild free pelvic ascites. No other acute or concerning abnormalities in the abdomen or pelvis, with evaluation limited by lack of IV contrast.
[2024-01-31] MEDS ORDERED: KETOROLAC 30 MG/ML INJ ONE (15:20)
[2024-01-31] MEDS ORDERED: NA CHLORIDE 0.9% 1,000 ML ONE (15:21)
[2024-01-31] MEDS ORDERED: ONDANSETRON 4 MG/2 ML VIAL ONE (16:33)
[2024-01-31] MEDS ORDERED: METHYLPREDNISOLONE 40 MG INJ ONE (16:33)
[2024-01-31] MEDS ORDERED: MORPHINE 4 MG/ML SYR ONE (16:34)
--- NOTE | 2024-01-31 16:46 | EDPHYS ---
Physician Documentation [facility] Name: Naomi Curtis Age: 38 yrs Sex: Female : 1985 Arrival Date: 01/31/2024 Time: 12:14 Bed 10 Private MD: ED Physician Armida Hernandez HPI: 01/30 12:22 This 38 yrs old Black Female presents to ER via Unassigned with complaints of Flank gb1 Pain. 16:57 38-year-old -Tong[place] female with history of multiple sclerosis who is not gb1 currently on any neuromodulating medication and sees Dr. Vargas but has not seen HIM since last year. Patient submitted smokes medical marijuana for pain control. She denies any chest pain or any trauma or fall. She patient denies any nausea vomiting or diarrhea.. Historical: - Allergies: 13:32 No Known Allergies; hb - Home Meds: 13:32 None [Active]; hb - PMHx: 13:32 MS; hb - PSHx: 13:32 Hysterectomy; Cholecystectomy; Tubal Ligation; hb - Immunization history:: Adult Immunizations up to date. - Infectious Disease History:: Denies. - Social history:: Smoking status: Patient denies any tobacco usage or history of. Exam: 16:57 Constitutional: This is a well developed, well nourished patient who is awake, alert, gb1 and in no acute distress. Head/Face: Normocephalic, atraumatic. Eyes: Pupils equal round and reactive to light, extra-ocular motions intact. Lids and lashes normal. Conjunctiva and sclera are non-icteric and not injected. Cornea within normal limits. Periorbital areas with no swelling, redness, or edema. ENT: Nares patent. No nasal discharge, no septal abnormalities noted. Tympanic membranes are normal and external auditory canals are clear. Oropharynx with no redness, swelling, or masses, exudates, or evidence of obstruction, uvula midline. Mucous membranes moist. Neck: Trachea midline, no thyromegaly or masses palpated, and no cervical lymphadenopathy. Supple, full range of motion without nuchal rigidity, or vertebral point tenderness. No Meningismus. Chest/axilla: Normal chest wall appearance and motion. Right-sided chest wall and rib pain up around the breast and upper right flank area. Very tender to tap palpation.. No lesions are appreciated. Cardiovascular: Regular rate and rhythm with a normal S1 and S2. No gallops, murmurs, or rubs. Normal PMI, no JVD. No pulse deficits. Respiratory: Lungs have equal breath sounds bilaterally, clear to auscultation and percussion. No rales, rhonchi or wheezes noted. No increased work of breathing, no retractions or nasal flaring. Abdomen/GI: Soft, non-tender, with normal bowel sounds. No distension or tympany. No guarding or rebound. No evidence of tenderness throughout. Skin: Warm, dry with normal turgor. Normal color with no rashes, no lesions, and no evidence of cellulitis. MS/ Extremity: Pulses equal, no cyanosis. Neurovascular intact. Full, normal range of motion. Vital Signs: 13:30 Pulse 74; Resp 16; Temp 97.3; Pulse Ox 100% on R/A; Weight 49.9 kg; Height 5 ft. 9 in. hb ; Pain 10/10; 15:36 BP 146 / 90; kc6 13:30 Body Mass Index 16.24 (49.90 kg, 175.26 cm) hb 13:30 Pain Scale: Adult hb MDM: 13:44 Medical Screening Exam initiated gb1 16:57 Data reviewed: vital signs, nurses notes, lab test result(s), CBC, electrolytes, gb1 ddimer, radiologic studies, plain films. 16:57 ED course: Consider costochondritis versus very low risk for pulmonary embolism, rib gb1 contusion versus fracture, versus neuropathic pain secondary to MS.. 01/30 12:23 Order name: CBC with Diff; Complete Time: 14:47 gb1 01/30 12:23 Order name: CMP; Complete Time: 14:47 gb1 01/30 12:23 Order name: Lipase; Complete Time: 14:47 gb1 01/30 12:23 Order name: Test, Urine; Complete Time: 14:47 gb1 01/30 12:23 Order name: Urinalysis w/ reflexes; Complete Time: 14:47 gb1 01/30 15:35 Order name: DD; Complete Time: 16:41 gb1 01/30 12:23 Order name: CT Abd/Pelvis - Without Contrast; Complete Time: 14:47 gb1 01/30 15:34 Order name: Chest Single View XRAY gb1 01/30 12:23 Order name: IV Saline Lock; Complete Time: 13:55 gb1 01/30 12:23 Order name: Labs collected and sent; Complete Time: 13:55 gb1 Administered Medications: 15:35 Drug: Ketorolac IVP 30 mg IVP once Route: IVP; Site: left antecubital; kc6 16:15 Follow up: Response: No adverse reaction; Pain is unchanged, physician notified kc6 15:36 Drug: NS 0.9% IV 1000 ml IV at 1 bolus Per protocol; to be given as a bolus over 60 kc6 minutes Route: IV; Rate: 1 bolus; Site: left wrist; 16:41 Drug: MethylPrednisoLONE IVP 80 mg IVP once Route: IVP; Site: left forearm; kc6 17:22 Follow up: Response: No adverse reaction ss 16:41 Drug: morphine IVP or IV 4 mg IVP once over 4 mins Route: IVP; Infused Over: 4 mins; kc6 Site: left forearm; 17:23 Follow up: Response: No adverse reaction; Pain is decreased; RASS: Alert and Calm (0) ss 16:41 Drug: Ondansetron IVP 4 mg IVP once; over 2 minutes Route: IVP; Site: left forearm; kc6 17:23 Follow up: Response: No adverse reaction ss Disposition Summary: 01/31/24 16:45 Discharge Ordered Notes: Location: Home gb1 Condition: Stable gb1 Diagnosis - Costochondritis gb1 Followup: gb1 - With: Private Physician - When: - Reason: Continuance of care Followup: gb1 - With: Edwin Vargas MD - When: - Reason: Re-evaluation by your physician Discharge Instructions: - Discharge Summary Sheet gb1 - Costochondritis, [id number] gb1 Forms: - Medication Reconciliation Form gb1 - Antibiotic Education gb1 - Prescription Opioid Use gb1 - Patient Portal Instructions gb1 - Leadership Thank You Letter gb1 Signatures: Dispatcher [employer] EDBeba Barrientos, [place] Monique Logan RN RN kc6 Armida Hernandez MD MD gb1 Layla Hernandez RN ss Corrections: (The following items were deleted from the chart) 12:24 12:23 CBC+H.LAB.BRZ ordered. EDMS EDMS 12:24 12:24 COMPREHENSIVE METABOLIC PANEL+C.LAB.BRZ ordered. EDMS EDMS 12:24 12:24 LIPASE+C.LAB.BRZ ordered. EDMS EDMS 12:24 12:24 Test, Urine+UC.LAB.BRZ ordered. EDMS EDMS 12:24 12:24 Urinalysis+U.LAB.BRZ ordered. EDMS EDMS 12:24 12:24 Abdomen Pelvis Wo Con+CT.RAD.BRZ ordered. EDMS EDMS 15:35 15:35 Chest Single View+RAD.RAD.BRZ ordered. EDMS EDMS
--- NOTE | 2024-01-31 16:46 | ER ---
Nurse's Notes [facility] Name: Naomi Curtis Age: 38 yrs Sex: Female : 1985 Arrival Date: 01/31/2024 Time: 12:14 Bed 10 Private MD: Diagnosis: Costochondritis Presentation: 01/30 13:30 Chief complaint: Right flank pain x 1 week. Denies urinary s/s. Coronavirus screen: At this time, the client does not indicate any symptoms associated with coronavirus-19. Ebola Screen: No symptoms or risks identified at this time. Initial Sepsis Screen: Does the patient meet any 2 criteria? No. Patient's initial sepsis screen is negative. Does the patient have a suspected source of infection? No. Patient's initial sepsis screen is negative. Risk Assessment: Do you want to hurt yourself or someone else? Patient reports no desire to harm self or others. Onset of symptoms was January 24, 2024. 13:30 Method Of Arrival: Ambulatory hb 13:30 Acuity: BETY 3 hb Historical: - Allergies: 13:32 No Known Allergies; hb - Home Meds: 13:32 None [Active]; hb - PMHx: 13:32 MS; hb - PSHx: 13:32 Hysterectomy; Cholecystectomy; Tubal Ligation; hb - Immunization history:: Adult Immunizations up to date. - Infectious Disease History:: Denies. - Social history:: Smoking status: Patient denies any tobacco usage or history of. Screenin:37 [facility] ED Fall Risk Assessment (Adult) History of falling in the last 3 months, kc6 including since admission No falls in past 3 months (0 pts) Confusion or Disorientation No (0 pts) Intoxicated or Sedated No (0 pts) Impaired Gait No (0 pts) Mobility Assist Device Used No (0 pt) Altered Elimination No (0 pt) Score/Fall Risk Level 0 - 2 = Low Risk Oriented to surroundings, Maintained a safe environment. Abuse screen: Denies threats or abuse. Denies injuries from another. Nutritional screening: No deficits noted. Tuberculosis screening: No symptoms or risk factors identified. Assessment: 15:36 General: Appears in no apparent distress. uncomfortable, slender, well groomed, well kc6 developed, Behavior is calm, cooperative, appropriate for age. Pain: Complains of pain in right lateral posterior chest. Neuro: Level of Consciousness is awake, alert, obeys commands, Oriented to person, place, time, situation, Appropriate for age. Cardiovascular: Capillary refill < 3 seconds. Respiratory: Airway is patent Trachea midline Respiratory effort is even, unlabored, Respiratory pattern is regular, symmetrical. GI: No signs and/or symptoms were reported involving the gastrointestinal system. : No signs and/or symptoms were reported regarding the genitourinary system. EENT: No signs and/or symptoms were reported regarding the EENT system. Derm: No signs and/or symptoms reported regarding the dermatologic system. Skin is intact, is healthy with good turgor, Skin is pink, warm \T\ dry. Musculoskeletal: No signs and/or symptoms reported regarding the musculoskeletal system. Circulation, motion, and sensation intact. Capillary refill < 3 seconds, Range of motion: intact in all extremities. 16:59 Reassessment: Patient appears in no apparent distress at this time. No changes from kc6 previously documented assessment. Patient and/or family updated on plan of care and expected duration. Pain level reassessed. Patient is alert, oriented x 3, equal unlabored respirations, skin warm/dry/pink. 17:23 Reassessment: Patient appears in no apparent distress at this time. No changes from ss previously documented assessment. Patient and/or family updated on plan of care and expected duration. Pain level reassessed. Patient is alert, oriented x 3, equal unlabored respirations, skin warm/dry/pink. Patient states feeling better. Patient states symptoms have improved. Vital Signs: 13:30 Pulse 74; Resp 16; Temp 97.3; Pulse Ox 100% on R/A; Weight 49.9 kg; Height 5 ft. 9 in. hb ; Pain 10/10; 15:36 BP 146 / 90; kc6 13:30 Body Mass Index 16.24 (49.90 kg, 175.26 cm) hb 13:30 Pain Scale: Adult hb ED Course: 12:17 Patient arrived in ED. mr 12:22 Armida Hernandez MD is Attending Physician. gb1 13:27 CT Abd/Pelvis - Without Contrast In Process Unspecified. EDMS 13:32 Triage completed. hb 13:33 Arm band placed on. hb 13:55 CBC with Diff Sent. bc6 13:55 CMP Sent. bc6 13:55 Lipase Sent. bc6 13:55 Initial lab(s) drawn, by ri, sent to lab. Inserted saline lock: 24 gauge in left bc6 forearm, using aseptic technique. Blood collected. Flushed with 10 mL NS. 15:21 Monique Logan, RN is Primary Nurse. kc6 15:37 Patient has correct armband on for positive identification. Bed in low position. Call kc light in reach. Side rails up X 1. Adult w/ patient. Pulse ox on. NIBP on. Door closed. Noise minimized. Lights dimmed. Pillow given. 15:37 Patient maintains SpO2 saturation greater than 95% on room air. kc6 16:15 DD Sent. kc6 16:29 Chest Single View XRAY In Process Unspecified. EDMS 16:45 Edwin Vargas MD is Referral Physician. gb1 17:24 No provider procedures requiring assistance completed. IV discontinued, intact, ss bleeding controlled, No redness/swelling at site. Pressure dressing applied. Administered Medications: 15:35 Drug: Ketorolac IVP 30 mg IVP once Route: IVP; Site: left antecubital; kc6 16:15 Follow up: Response: No adverse reaction; Pain is unchanged, physician notified kc6 15:36 Drug: NS 0.9% IV 1000 ml IV at 1 bolus Per protocol; to be given as a bolus over 60 kc6 minutes Route: IV; Rate: 1 bolus; Site: left wrist; 16:41 Drug: MethylPrednisoLONE IVP 80 mg IVP once Route: IVP; Site: left forearm; kc6 17:22 Follow up: Response: No adverse reaction ss 16:41 Drug: morphine IVP or IV 4 mg IVP once over 4 mins Route: IVP; Infused Over: 4 mins; 6 Site: left forearm; 17:23 Follow up: Response: No adverse reaction; Pain is decreased; RASS: Alert and Calm (0) ss 16:41 Drug: Ondansetron IVP 4 mg IVP once; over 2 minutes Route: IVP; Site: left forearm; kc6 17:23 Follow up: Response: No adverse reaction ss Medication: 17:24 VIS not applicable for this client. ss Outcome: 16:45 Discharge ordered by . gb1 17:24 Discharged to home ambulatory, with significant other, ss 17:24 Condition: good 17:24 Discharge instructions given to patient, significant other, Instructed on discharge instructions, follow up and referral plans. no drinking with medication, no driving heavy equipment, Demonstrated understanding of instructions, follow-up care, 17:24 Patient left the ED. ss Signatures: Dispatcher [employer] EDVT Michell Pedro, Reg Reg mr HernandezLayla, [place] ss Beba Euceda RN RN hb Campbell, Kaitlyn, RN RN kc6 Sheeba Callaway6 Armida Hernandez MD MD gb1
--- NOTE | 2024-01-31 17:29 | RAD REPORT ---
EXAMINATION: ONE VIEW CHEST XR CLINICAL INDICATION: Female, 38 years old.,CHEST PAIN TECHNIQUE: Frontal chest projection is submitted. Examination is limited by patient positioning and t echnique. COMPARISON: 04/23/2019 FINDINGS: The lungs are well inflated and clear. No pneumothorax or sizable effusion. The heart is normal in s ize. Mediastinal contours are unremarkable. IMPRESSION: No acute intrathoracic abnormalities.
[2024-01-31 22:00] VITALS: TEMP 97.3; O2SAT 100
[2024-01-31 22:05] VITALS: BP 146/90
== END 2024-01-31 17:24 | disposition home or self-care (01) ==
LOC: ER 12:14
DX: M94.0 Chondrocostal junction syndrome [Tietze] (principal)
CPT/HCPCS: 85025; 81001; 36415; 81025; 85379; 83690; 80053; 74176; 71045; 99284; J2405; J7030; J2919